=== PATIENT | female | born 1975 | race Caucasian/White ===

== ENCOUNTER 2022-05-11 17:24 | Emergency (ER) | payer OTHER, SELFPAY ==
[2022-05-11 17:31] VITALS: BP 168/95; PULSE 79; RESP 15; TEMP 37.4; O2SAT 100
--- NOTE | 2022-05-11 18:01 | ED.WOUNDLAC ---
HPI - Wound/Laceration General Chief Complaint: Wound/Laceration Stated Complaint: wound Time Seen by Provider: 05/11/22 17:49 History of Present Illness HPI narrative: 46-year-old female presents to the emergency room for evaluation of a laceration to her face. Patient states that she was playing with her new puppy, when the dog scratched her in the face and between her right eye and nose. Patient states that she irrigated the laceration with water and then cleaned it with soap and water. Bleeding was controlled prior to arrival. Reports tetanus is up-to-date Related Data Allergies Allergy/AdvReac Type Severity Reaction Status Date / Time Penicillins Allergy rash Verified 05/11/22 17:56 Review of Systems Review of Systems: CONSTITUTIONAL: Denies fever, chills, or sweats. EYES: Denies visual changes, redness, or discharge. ENT: Denies rhinorrhea, congestion, sore throat, or otalgia. CARDIOVASCULAR: Denies chest pain, palpitations, or edema. RESPIRATORY: Denies cough or dyspnea. GASTROINTESTINAL: Denies abdominal pain, nausea, vomiting, or diarrhea. GENITOURINARY: Denies dysuria or hematuria. SKIN: Reports laceration to face MUSCULOSKELETAL: Denies back pain, joint pain, or myalgia. NEUROLOGIC: Denies headache, numbness, dizziness, or weakness. PSYCHIATRIC: Denies anxiety or depression. Exam Narrative: GENERAL: Well-appearing, well-nourished, no physical limitations, and in no acute distress. HEAD: Normocephalic, atraumatic. EYES: Conjunctivae normal, PERRLA and EOMI. CHEST: Clear to auscultation. No respiratory distress. No wheezes rales or rhonchi. HEART: Regular rate and rhythm. No murmur heard. Normal peripheral pulses. EXTREMITIES: Normal range of motion. No edema. No clubbing or cyanosis SKIN: 1-1/2 cm linear laceration to the right medial canthus. NEURO: No focal deficits. Alert and oriented x3. MAEW. CN's II-XI intact bilaterally, normal gait PSYCH: Cooperative. Normal mood and affect. Course Vital Signs Vital signs: Vital Signs Temperature 37.4 C 05/11/22 17:31 Pulse Rate 79 05/11/22 17:31 Respiratory Rate 15 05/11/22 17:31 Blood Pressure 168/95 H 05/11/22 17:31 Pulse Oximetry 100 05/11/22 17:31 Oxygen Delivery Room Air 05/11/22 17:31 Temperature 37.4 C 05/11/22 17:31 Pulse Rate 79 05/11/22 17:31 Respiratory Rate 15 05/11/22 17:31 Blood Pressure 168/95 H 05/11/22 17:31 Pulse Oximetry 100 05/11/22 17:31 Oxygen Delivery Room Air 05/11/22 17:31 Discharge Plan Discharge Clinical Impression: Laceration Patient Disposition: Home, Self-Care Condition: Stable Instructions: Antibiotic Form Prescriptions: New clindamycin HCl 300 mg capsule 300 mg PO Q8H 7 Days Qty: 21 0RF sulfamethoxazole-trimethoprim 800-160 mg tablet 1 tablet PO Q12H 7 Days Qty: 14 0RF Follow-up/Referrals: PHYSICIAN NOT ON STAFF,NONSTAFF [Non-Staff] - Time of Disposition: 18:01
[2022-05-11 18:21] VITALS: PULSE 83; RESP 16; O2SAT 98
== END 2022-05-11 18:21 | disposition home or self-care (01) ==
LOC: ANHED 18:02
PROVIDERS: Emergency Provider Nurse Practitioner Family; PCP Internal Medicine
DX: S01.81XA Laceration without foreign body of other part of head, initial encounter (principal); W54.8XXA Other contact with dog, initial encounter
CPT/HCPCS: 99283